=== PATIENT | female | born 1955 | race Hispanic/Latino ===

== ENCOUNTER 2017-03-04 07:17 | Emergency (ER) | payer OTHER ==
[2017-03-04 07:26] VITALS: BMI 35.9
[2017-03-04 07:27] VITALS: PULSE 74; RESP 17; TEMP 97.8; O2SAT 98
--- NOTE | 2017-03-04 08:02 | ED PDOC ---
HPI: Head Injury Time Seen by Provider: 03/04/17 07:35 Chief Complaint (Nursing): Trauma Chief Complaint (Provider): Head Injury History Per: Patient History/Exam Limitations: no limitations Injury Occurred (Timing): Hours Ago: (x1) Patient States: Fell Striking Head Loss Of Consciousness: No Additional Complaint(s): Rani Mtz is a 62 year old female with a history of diabetes and cardiac problems that presents to the ED after she reports she was sitting on a bench in the [place] and "dozed off," causing her to strike the upper left part of her forehead onto the ground one hour prior to arrival. Patient reports slight nausea, which she attributes to feeling anxious, but otherwise has no complaints and denies LOC. Past Medical History Reviewed: Historical Data, Nursing Documentation, Vital Signs Vital Signs: Last Vital Signs Temp 97.8 F 03/04/17 07:26 Pulse 74 03/04/17 07:26 Resp 17 03/04/17 07:26 BP 158/73 H 03/04/17 07:26 Pulse Ox 98 03/04/17 07:26 - Medical History PMH: Asthma, COPD, Diabetes, HTN, Hypercholesterolemia Other PMH: hx of heart attack in 2013 - Surgical History Other surgeries: Open heart surgery - Family History Family History: States: Unknown Family Hx - Home Medications Home Medications: Ambulatory Orders Medication Instructions Recorded Aspirin [Aspirin Chewable] 81 mg PO DAILY 02/26/17 Atorvastatin [Lipitor] 20 mg PO DIN tab 02/26/17 Clopidogrel [Plavix] 75 mg PO DAILY tab 02/26/17 Linezolid [Zyvox] 600 mg PO Q12 #14 tab 02/26/17 Lisinopril [Zestril] 5 mg PO DAILY tab 02/26/17 Metoprolol Tartrate [Lopressor] 25 mg PO BID tab 02/26/17 - Allergies Allergies/Adverse Reactions: Allergies Allergy/AdvReac Type Severity Reaction Status Date / Time No Known Allergies Allergy Verified 03/04/17 07:43 Review of Systems Constitutional: Positive for: Other (head injury, denies LOC) Gastrointestinal: Positive for: Nausea (mild) Physical Exam - Reviewed Nursing Documentation Reviewed: Yes Vital Signs Reviewed: Yes - Physical Exam Appears: Positive for: Non-toxic, No Acute Distress Head Exam: Positive for: NORMOCEPHALIC. Negative for: ATRAUMATIC (4x3 cm hematoma on left frontal scalp. Patient reports that injury occurred one hour [place] but hematoma does not appear as though it is new.) Skin: Positive for: Normal Color, Warm Eye Exam: Positive for: Normal appearance, EOMI, PERRL Neck: Positive for: Normal, Painless ROM Cardiovascular/Chest: Positive for: Regular Rate, Rhythm. Negative for: Murmur Respiratory: Positive for: Normal Breath Sounds. Negative for: Wheezing Extremity: Positive for: Normal ROM, Other (5/5 strength in all extremities). Negative for: Tenderness Neurologic/Psych: Positive for: Alert, linoleum floor layer II-XII, Oriented. Negative for: Motor/Sensory Deficits, Aphasia, Facial Droop - Laboratory Results Result Diagrams: 03/04/17 08:02 03/04/17 08:02 - ECG O2 Sat by Pulse Oximetry: 98 (RA) Pulse Ox Interpretation: Normal Medical Decision Making Medical Decision Making: Impression: Head Injury s/p fall Plan: * CT Head w/o contrast * EKG * BMP * CBC * PTT * PT * Troponin 1 * Reevaluation 8:00 Patient's EKG shows NSR normal axis rate of 68, no acute changes. 8:30 CT Head w/o contrast FINDINGS: HEMORRHAGE: No intracranial hemorrhage. BRAIN: No mass effect or edema. No atrophy or chronic microvascular ischemic changes. VENTRICLES: Unremarkable. No hydrocephalus. CALVARIUM: Left frontal soft tissue hematoma. . PARANASAL SINUSES: Unremarkable as visualized. No significant inflammatory changes. MASTOID AIR CELLS: Unremarkable as visualized. No inflammatory changes. OTHER FINDINGS: None. IMPRESSION: Left frontal soft tissue hematoma. No intracranial hemorrhage. Scribe Attestation: Documented by Jacquelin Small, acting as a scribe for Carmen Rios MD. Provider Scribe Attestation: All medical record entries made by the Scribe were at my direction and personally dictated by me. I have reviewed the chart and agree that the record accurately reflects my personal performance of the history, physical exam, medical decision making, and the department course for this patient. I have also personally directed, reviewed, and agree with the discharge instructions and disposition. Disposition - Clinical Impression Clinical Impression: Scalp hematoma - Patient ED Disposition Is Patient to be Admitted: No Doctor Will See Patient In The: Office Counseled Patient/Family Regarding: Diagnosis, Need For Followup - Disposition Referrals: [facility] [Outside] Disposition: Routine/Home Disposition Time: 10:15 Condition: STABLE Instructions: Scalp Contusion in Adults (ED), Head Injury (ED) Forms: [facility] (Surinamese) - POA Present On Arrival: Falls Or Trauma
[2017-03-04 08:45] LABS: BASO % 0.7 % (0.0-2.0); EOS # 0.1 K/uL (0.0-0.7); EOS % 2.5 % (0.0-4.0); HEMATOCRIT 31.4 % (34.0-47.0); LYMPH % 20.7 % (20.0-40.0); MEAN CELL VOLUME 84.9 fl (81.0-99.0); MEAN CORPUSCULAR HEMOGLOBIN 27.8 pg (27.0-31.0); MEAN CORPUSCULAR HGB CONC 32.7 g/dL (33.0-37.0); MEAN PLATELET VOLUME 8.7 fl (7.2-11.7); MONO # 0.3 K/uL (0.0-0.8); MONO % 5.6 % (0.0-10.0); NEUT # 3.3 K/uL (1.8-7.0); NEUT % 70.5 % (50.0-75.0); NRBC % 0.1 % (0.0-0.0); WHITE BLOOD COUNT 4.6 K/uL (4.8-10.8)
[2017-03-04 08:49] LABS: BLOOD UREA NITROGEN 26 mg/dl (7-17); CALCIUM 9.8 mg/dL (8.4-10.2); CARBON DIOXIDE 24 mmol/L (22-30); CHLORIDE 106 mmol/L (98-107); GFR AFRICAN-AMERICAN > 60; GLUCOSE,RANDOM 175 mg/dL (65-105); POTASSIUM 4.8 MMOL/L (3.6-5.0); SODIUM 141 mmol/l (132-148)
[2017-03-04 08:58] LABS: PARTIAL THROMBOPLASTIN TIME 32.4 Seconds (25.6-37.1)
--- NOTE | 2017-03-04 09:11 | CT ---
PROCEDURE: CT HEAD WITHOUT CONTRAST. HISTORY: fall with head injury COMPARISON: None available. TECHNIQUE: Axial computed tomography images were obtained through the head/brain without intravenous contrast. Radiation dose: Total exam DLP = 885 mGy-cm. This CT exam was performed using one or more of the following dose reduction techniques: Automated exposure control, adjustment of the mA and/or kV according to patient size, and/or use of iterative reconstruction technique. FINDINGS: HEMORRHAGE: No intracranial hemorrhage. BRAIN: No mass effect or edema. No atrophy or chronic microvascular ischemic changes. VENTRICLES: Unremarkable. No hydrocephalus. CALVARIUM: Left frontal soft tissue hematoma. . PARANASAL SINUSES: Unremarkable as visualized. No significant inflammatory changes. MASTOID AIR CELLS: Unremarkable as visualized. No inflammatory changes. OTHER FINDINGS: None. IMPRESSION: Left frontal soft tissue hematoma. No intracranial hemorrhage.
--- NOTE | 2017-03-04 09:39 | CARD ---
APPROVED REPORT EKG Measurement Heart [id number] MA [id number] [id number] <Conclusion> Normal sinus rhythm Moderate voltage criteria for LVH, may be normal variant Inferior infarct, age undetermined Abnormal ECG
[2017-03-04 11:32] VITALS: BP 143/84
== END 2017-03-04 11:31 | disposition home or self-care (01) ==
LOC: H.ER 07:17
DX: S00.03XA Contusion of scalp, initial encounter (principal); W22.8XXA Striking against or struck by other objects, initial encounter; Y92.89 Other specified places as the place of occurrence of the external cause; E11.9 Type 2 diabetes mellitus without complications; E78.00 Pure hypercholesterolemia, unspecified; I10 Essential (primary) hypertension; Z79.82 Long term (current) use of aspirin; I25.2 Old myocardial infarction; J44.9 Chronic obstructive pulmonary disease, unspecified

== ENCOUNTER 2017-03-07 11:24 | Inpatient (IN) | payer OTHER ==
[2017-03-07 11:24] VITALS: BMI 35.9
[2017-03-07 12:32] LABS: BASO % 0.8 % (0.0-2.0); EOS # 0.1 K/uL (0.0-0.7); EOS % 2.1 % (0.0-4.0); HEMATOCRIT 31.8 % (34.0-47.0); LYMPH % 18.7 % (20.0-40.0); MEAN CELL VOLUME 84.5 fl (81.0-99.0); MEAN CORPUSCULAR HEMOGLOBIN 27.3 pg (27.0-31.0); MEAN CORPUSCULAR HGB CONC 32.3 g/dL (33.0-37.0); MONO # 0.3 K/uL (0.0-0.8); MONO % 5.3 % (0.0-10.0); NEUT # 4.1 K/uL (1.8-7.0); NEUT % 73.1 % (50.0-75.0); NRBC % 0.1 % (0.0-0.0); RED CELL DISTRIBUTION WIDTH 15.4 % (11.5-14.5); WHITE BLOOD COUNT 5.6 K/uL (4.8-10.8)
[2017-03-07 12:41] LABS: ALB/GLOB RATIO 1.4 (1.0-2.1); ALKALINE PHOSPHATASE 104 U/L (38-126); ALT/SGPT 41 U/L (9-52); AST/SGOT 21 U/L (14-36); BILIRUBIN,TOTAL 0.4 mg/dl (0.2-1.3); BLOOD UREA NITROGEN 30 mg/dl (7-17); CALCIUM 9.5 mg/dL (8.4-10.2); CARBON DIOXIDE 24 mmol/L (22-30); CHLORIDE 107 mmol/L (98-107); GFR AFRICAN-AMERICAN > 60; GLUCOSE,RANDOM 166 mg/dL (65-105); POTASSIUM 4.9 MMOL/L (3.6-5.0); SODIUM 142 mmol/l (132-148); TOTAL PROTEIN 6.6 G/DL (6.3-8.2)
--- NOTE | 2017-03-07 12:54 | ED PDOC ---
HPI: General Adult Time Seen by Provider: 03/07/17 11:27 Chief Complaint (Nursing): Trauma History Per: Patient Additional Complaint(s): Pt. states on Sunday she was sleeping on a bench when she was woke abruptly and she stood up and felt dizzy. She then fell down and landed on the L side of her head. Reports no LOC. She was seen here and had CT done which was negative and she was subsequently discharged. This morning she bent forward to pick pulling machine tender an object and when she stood up she felt dizzy which caused her to fall and injure the same side of her face once again. Denies LOC, N/V, neck pain, other injury. Past Medical History Reviewed: Historical Data, Nursing Documentation, Vital Signs Vital Signs: Last Vital Signs Temp 98.3 F 03/07/17 11:32 Pulse 64 03/07/17 15:35 Resp 16 03/07/17 14:26 BP 149/66 03/07/17 14:26 Pulse Ox 98 03/07/17 15:35 - Medical History PMH: Asthma, COPD, Diabetes, HTN, Hypercholesterolemia - Family History Family History: States: No Known Family Hx - Home Medications Home Medications: Ambulatory Orders Medication Instructions Recorded Albuterol HFA [Ventolin HFA 90 2 puff IH Q4H PRN 03/07/17 mcg/actuation (8 g)] Clindamycin [Cleocin] 300 mg PO TID 03/07/17 Collagenase [Santyl] 1 appl TOP DAILY 03/07/17 Furosemide [Lasix] 40 mg PO DAILY 03/07/17 Ibuprofen [Motrin Tab] 600 mg PO Q6H PRN 03/07/17 Insulin Detemir [Levemir] 12 unit SC HS 03/07/17 Isosorbide Mononitrate [Imdur] 60 mg PO DAILY 03/07/17 Lisinopril [Zestril] 10 mg PO DAILY 03/07/17 Mupirocin 2% Ointment [Bactroban 1 appl TP DAILY 03/07/17 Ointment] metFORMIN [glucOPHAGE] 500 mg PO BID 03/07/17 - Allergies Allergies/Adverse Reactions: Allergies Allergy/AdvReac Type Severity Reaction Status Date / Time No Known Allergies Allergy Verified 03/07/17 11:41 Review of Systems ROS Statement: Except As Marked, All Systems Reviewed And Found Negative Neurological: Positive for: Headache Physical Exam - Reviewed Nursing Documentation Reviewed: Yes Vital Signs Reviewed: Yes - Physical Exam Appears: Positive for: Well, Non-toxic, No Acute Distress Head Exam: Negative for: ATRAUMATIC (large swelling and ecchymotic area on the L side of forehead extending to L side of face with superficial abrasion noted to L side of forehead), NORMAL INSPECTION, NORMOCEPHALIC Skin: Positive for: Normal Color, Warm, DRY Eye Exam: Positive for: EOMI (including upward gaze), PERRL, Periorbital swelling (L upper eyelid). Negative for: Periorbital tenderness, Conjunctival injection (b/l) ENT: Positive for: Normal ENT Inspection, TM Is/Are (no hemotympanum b/l) Neck: Positive for: Normal, Painless ROM Cardiovascular/Chest: Positive for: Regular Rate, Rhythm, Chest Non Tender Respiratory: Positive for: CNT, Normal Breath Sounds Gastrointestinal/Abdominal: Positive for: Normal Exam, Soft. Negative for: Tenderness Back: Positive for: Normal Inspection Extremity: Positive for: Normal ROM Neurologic/Psych: Positive for: Alert, Oriented - Laboratory Results Result Diagrams: 03/07/17 12:20 03/07/17 12:20 - ECG ECG: Positive for: Interpreted By Me ECG Rhythm: Positive for: Sinus Rhythm. Negative for: ST/T Changes Rate: 64 O2 Sat by Pulse Oximetry: 98 - Radiology X-Ray: Read By Radiologist (CXR) X-Ray Interpretation: Infiltrates (R lower lobe infiltrate or atelectasis) - Progress ED Course And Treament: CT head w/o contrast: no ICH CT maxillofacial w/o contrast: no fx Case d/w Dr. Jorgensen (hospitalist; pt's PMD is Dr. Sandy) and arrangements made for admission. Blood culture x 2, levaquin 500mg IV ordered. Disposition - Clinical Impression Clinical Impression: Head injury, Pneumonia - Patient ED Disposition Is Patient to be Admitted: Yes - Disposition Disposition Time: 15:07 Condition: STABLE
--- NOTE | 2017-03-07 14:37 | CT ---
PROCEDURE: CT scan brain 03/07/2017 HISTORY: trauma COMPARISON: Comparison made with prior CT scan of the brain dated 03/04/2017. TECHNIQUE: Axial computed tomography images were obtained through the head/brain without intravenous contrast. Radiation dose: Total exam DLP = mGy-cm. This CT exam was performed using one or more of the following dose reduction techniques: Automated exposure control, adjustment of the mA and/or kV according to patient size, and/or use of iterative reconstruction technique. FINDINGS: HEMORRHAGE: No acute parenchymal, subarachnoid or extra-axial hemorrhage. BRAIN: No evidence of large acute infarct. . No obvious parenchymal nor extra-axial masses or collections. Kidney take a lymph node kidney take a look in wondering UPEP dictate the case to emanate time to dictate the case? Mild generalized volume VENTRICLES: No evidence of obstructive hydrocephalus. CALVARIUM: . No acute calvarial fractures. Re- demonstrated is a large left frontotemporal and to a lesser degree left anterior parietal scalp contusion which extends medially over the mid frontal region as well inferiorly over the periorbital and premaxillary soft tissues. Swelling extends over the left zygomatic arch PARANASAL SINUSES: Unremarkable as visualized. No significant inflammatory changes. MASTOID AIR CELLS: Unremarkable as visualized. No inflammatory changes. OTHER FINDINGS: None. IMPRESSION: No acute intracranial hemorrhage. Large left frontal temporal and posterior parietal scalp contusion. . Swelling extends over the left periorbital and left premaxillary soft tissues as well as over the left zygomatic arch.
--- NOTE | 2017-03-07 14:53 | RAD ---
HISTORY: Trauma COMPARISON: No prior. FINDINGS: LUNGS: Right lower lobe infiltrate/ atelectasis. PLEURA: No significant pleural effusion identified, no pneumothorax apparent. CARDIOVASCULAR: Cardiomegaly. No evidence of acute, significant cardiovascular disease. OSSEOUS STRUCTURES: No significant abnormalities. VISUALIZED UPPER ABDOMEN: Normal. OTHER FINDINGS: None. IMPRESSION: Right lower lobe infiltrate/atelectasis.
--- NOTE | 2017-03-07 15:02 | CT ---
PROCEDURE: CT scan maxillofacial skeleton dated 03/07/2017. HISTORY: Trauma COMPARISON: Correlation made with concurrent CT scan brain TECHNIQUE: Contiguous helical/transaxial CT images of the maxillofacial bones were obtained. Coronal and sagittal reformats were generated. Radiation dose: 731.58 Total exam DLP = 731.58 mGy-cm. This CT exam was performed using one or more of the following dose reduction techniques: Automated exposure control, adjustment of the mA and/or kV according to patient size, and/or use of iterative reconstruction technique. FINDINGS: Re- demonstrated is a large left frontotemporal and posterior parietal scalp contusion with of soft tissue swelling that extends inferiorly into the periorbital soft tissues as well as the soft tissues overlying the zygomatic arch. The bony orbits intact. Globes intact and lenses appropriately located. There are no retrobulbar hemorrhages or collections. Optic nerves and extraocular musculature unremarkable. Visualized paranasal sinuses are well-developed and currently well-aerated. There are no fluid levels seen to suggest acute hemorrhage or sinusitis. Dense vascular calcifications of the carotid bifurcations. In addition, there are calcifications of the distal vertebral arteries and both carotid siphons. Note again made of incomplete fusion of the posterior arch C1. IMPRESSION: No evidence of acute maxillofacial skeletal fracture. The osseous structures including the nasal bones, anterior nasal spine and mandible Large left frontotemporal and posterior parietal scalp contusion with of soft tissue swelling that extends inferiorly into the periorbital soft tissues as well as the soft tissues overlying the zygomatic arch. Incomplete fusion posterior arch C1 unchanged
[2017-03-07] MEDS ORDERED: Sodium Chloride 0.9% 1,000 ML IV STA (15:34)
[2017-03-07] MEDS ORDERED: Albuterol HFA 90 mcg/actuation (8 g) IH PRN (15:54)
--- NOTE | 2017-03-07 15:54 | CP.PCM.HP ---
History of Present Illness - History of Present Illness History of Present Illness: PMD: Dr Camargo Chief Complaint : Fall HPI: 62 y/o Homeless lady with extensive medical history that includes CAD s/p CABG, HTN, DM, Chronic LLE Ulcer, Asthma, was brought in after a fall. The patient states that yesterday , because she lives in a retirement , she was sleeping on a bench and she accidentally fell and sustained head injury . She was seen at our ED , CT of head was negative and she was discharged home. This morning , the same thing happened , she hasnt eaten her breakfast , got up from the bench and felt slightly dizzy, fell and again injured the same side of the head as yesterday. Denies any loss of consciousness, no headache, no SOB, no CP. She denies feeling weak on one side of the body. denies fever. no visual change At present she feels fine except for a sl pain on the area of trauma. Noted left leg ulcer - this is chronic , she was just d/c from [facility] after a tx with IV abx. Wound c/s was + for MRSA and E coli. Present on Admission - Present on Admission Any Indicators Present on Admission: Yes - Notes: Notes:: non healing wound left leg Review of Systems - Review of Systems All systems: reviewed and no additional remarkable complaints except - Constitutional Constitutional: absent: Fever, Headache, Weakness - EENT Eyes: absent: Change in Vision, Diplopia Ears: absent: Decreased Hearing, Ear Discharge Nose/Mouth/Throat: absent: Nasal Congestion, Nasal Discharge, Dysphagia, Sore Throat - Cardiovascular Cardiovascular: Pedal Edema. absent: Chest Pain, Claudication, Orthopnea, Palpitations - Respiratory Respiratory: absent: Cough, Dyspnea, Hemoptysis, Dyspnea on Exertion, Wheezing, Chest Congestion - Gastrointestinal Gastrointestinal: absent: Abdominal Pain, Nausea, Vomiting - Genitourinary Genitourinary: absent: Change in Urinary Stream, Difficulty Urinating, Dysuria - Musculoskeletal Musculoskeletal: absent: Arthralgias - Integumentary Integumentary: Skin Ulcer, Swelling. absent: Bleeding Lesions - Neurological Neurological: absent: Behavioral Changes, Confusion, Disequilibrium, Dizziness, Focal Weakness, Headaches, Memory Loss, Paresthesias, Syncope - Psychiatric Psychiatric: absent: Anxiety, Depression, Suicidal Ideation, Visual Hallucinations - Endocrine Endocrine: absent: Polydipsia, Polyphagia, Polyuria - Hematologic/Lymphatic Hematologic: absent: Easy Bleeding, Easy Bruising Past Patient History - Infectious Disease Hx of Infectious Diseases: None - Tetanus Immunizations Tetanus Immunization: Unknown - Past Medical History & Family History Past Medical History?: Yes Pertinent Family History: Father : of COPD complications Mother : CAD - Past Social History Smoking Status: Former Smoker Chewing Tobacco Use: No Cigar Use: No Alcohol: None Drugs: Denies Home Situation {Lives}: Homeless Domestic Violence: Negative - CARDIAC Hx Cardiac Disorders: Yes Hx Hypercholesterolemia: Yes Hx Hypertension: Yes Hx Peripheral Edema: Yes Hx Peripheral Vascular Disease: Yes Other/Comment: CAD s/p CABG - PULMONARY Hx Asthma: Yes Hx Chronic Obstructive Pulmonary Disease (COPD): Yes - NEUROLOGICAL Hx Neurological Disorder: No - HEENT Hx HEENT Problems: No - RENAL Hx Chronic Kidney Disease: No - ENDOCRINE/METABOLIC Hx Endocrine Disorders: Yes Hx Diabetes Mellitus Type 2: Yes - HEMATOLOGICAL/ONCOLOGICAL Hx Blood Disorders: No - INTEGUMENTARY Hx Dermatological Problems: Yes Hx Cellulitis: Yes Other/Comment: nonhealing wound LLE - MUSCULOSKELETAL/RHEUMATOLOGICAL Hx Musculoskeletal Disorders: No Hx Falls: No - GASTROINTESTINAL Hx Gastrointestinal Disorders: No - GENITOURINARY/GYNECOLOGICAL Hx Genitourinary Disorders: No - PSYCHIATRIC Hx Psychophysiologic Disorder: No Hx Substance Use: No - SURGICAL HISTORY Hx Coronary Artery Bypass Graft: Yes Hx Tonsillectomy: Yes Other/Comment: by-pass both legs - ANESTHESIA Hx Anesthesia: Yes Hx Anesthesia Reactions: No Hx Malignant Hyperthermia: No Meds Allergies/Adverse Reactions: Allergies Allergy/AdvReac Type Severity Reaction Status Date / Time No Known Allergies Allergy Verified 03/07/17 11:41 Physical Exam - Constitutional Appears: Non-toxic, No Acute Distress - Head Exam Additional comments: Left frontal, temporal hematoma, abrasion periorbital hematoma , left - Eye Exam Eye Exam: EOMI, Periorbital tenderness Pupil Exam: NORMAL ACCOMODATION - ENT Exam ENT Exam: Mucous Membranes Moist, Normal External Ear Exam - Neck Exam Neck exam: Positive for: Full Rom. Negative for: Meningismus - Respiratory Exam Respiratory Exam: NORMAL BREATHING PATTERN. absent: Rales, Wheezes, Respiratory Distress - Cardiovascular Exam Cardiovascular Exam: REGULAR RHYTHM, +S1, +S2 - GI/Abdominal Exam GI & Abdominal Exam: Hernia (umbilical), Normal Bowel Sounds, Soft. absent: Tenderness - Extremities Exam Extremities exam: Positive for: calf tenderness, normal capillary refill, pedal edema, pedal pulses present Additional comments: left Leg ulcer - Back Exam Back exam: FULL ROM. absent: CVA tenderness (L), CVA tenderness (R), paraspinal tenderness, vertebral tenderness - Neurological Exam Neurological exam: Alert, CN II-XII Intact, Oriented x3, Reflexes Normal - Psychiatric Exam Psychiatric exam: Normal Affect, Normal Mood - Skin Skin Exam: Abrasion, Dry, Normal Color, Warm Results - Vital Signs Recent Vital Signs: Last Vital Signs Temp 98.3 F 03/07/17 11:32 Pulse 64 03/07/17 15:35 Resp 16 03/07/17 14:26 BP 149/66 03/07/17 14:26 Pulse Ox 98 03/07/17 15:35 - Labs Result Diagrams: 03/07/17 12:20 03/07/17 12:20 Labs: Laboratory Results - last 24 hr 03/07/17 03/07/17 12:20 12:20 WBC 5.6 RBC 3.77 L Hgb 10.3 L Hct 31.8 L MCV 84.5 MCH 27.3 MCHC 32.3 L RDW 15.4 H Plt Count 209 MPV 8.0 Neut % (Auto) 73.1 Lymph % (Auto) 18.7 L [place] % (Auto) 5.3 Eos % (Auto) 2.1 Baso % (Auto) 0.8 Neut # 4.1 Lymph # 1.0 [place] # 0.3 Eos # 0.1 Baso # 0.0 Sodium 142 Potassium 4.9 Chloride 107 Carbon Dioxide 24 Anion Gap 16 BUN 30 H Creatinine 1.1 Est GFR ( Amer) > 60 Est GFR (Non-Af Amer) 51 Random Glucose 166 H Calcium 9.5 Total Bilirubin 0.4 AST 21 ALT 41 Alkaline Phosphatase 104 Troponin I < 0.0120 Total Protein 6.6 Albumin 3.9 Globulin 2.7 Albumin/Globulin Ratio 1.4 - EKG Data EKG Interpreted by: Myself EKG shows normal: Sinus rhythm Rate: Normal - EKG Data When Compared to Previous EKG: No Significant Change Assessment & Plan (1) Head injury Status: Acute (2) Scalp hematoma Status: Acute (3) Fall Status: Acute (4) CAD (coronary artery disease) Status: Chronic (5) HTN (hypertension) Status: Chronic (6) DM type 2 (diabetes mellitus, type 2) Status: Chronic (7) Asthma, mild intermittent Status: Chronic (8) Chronic venous insufficiency Status: Chronic (9) Chronic ulcer of left leg Status: Chronic (10) DVT prophylaxis Status: Acute - Assessment and Plan (Free Text) Assessment: 62 y/o Homeless lady, hx of CAD s/p CABG, HTN, DM, Asthma , Chronic LLE Ulcer ( MRSA , E Coli) was brought in after a fall. Pt was brought in yesterday bec of the same problem - she fell off a bench while napping , sustained head trauma and scalp contusion. She had a CT scan w/c was negative for bleed nor fracture and was discharged home. Today she again was sitted on a bench , bent down to pick something on the floor when she felt slight dizzy and fell on her left and sustained trauma on the same side of her head where she had the trauma, the day before. She denies LOC, headache, no N/V, no CP, no SOB. She states she did not eat her breakfast before the event. (1) Head injury Status: Acute sec to [facility], denies LOC, [place] CT of head and Maxillofacial : No intracranial bleed nor fracture, No acute intracranial hemorrhage. Large left frontal temporal and posterior parietal scalp contusion. . Swelling extends over the left periorbital and left premaxillary soft tissues as well as over the left zygomatic arch. PT consult No focal neuro deficit (2) Scalp hematoma Status: Acute as above (3) Fall Status: Acute as above no signs and sxs to indicate this was a syncopal episode no focal neuro deficit on exam PT consult (4) CAD (coronary artery disease) Status: Chronic Hx of CABG denies CP Trop x 3 no EKG change cont Imdur, ASA (5) HTN (hypertension) Status: Chronic (6) DM type 2 (diabetes mellitus, type 2) Status: Chronic accucheck achs cont Levemir cont Metformin (7) Asthma, mild intermittent Status: Chronic Albuterol inhaler prn (8) Chronic venous insufficiency Status: Chronic stasis skin changes (9) Chronic ulcer of left leg Status: Chronic recent d/c from [facility] for Cellulitis- on PO Clinda Wound c/s; MRSA and E coli will start IV vanco and Levaquin while in the hospital Podiatry consult Pt is afebrile, no Leukocytosis, some tenderness and erythema around the area of the wound Wound RN Doppler US of LLE 10. CXR : Atelectasis vs Infiltrate - no fever, no leukocytosis, pt has no dyspnea, occ cough, lung exam: no rales - Favor Atelectasis (11) DVT prophylaxis Status: Acute Lovenox
[2017-03-07] MEDS ORDERED: levoFLOXacin 500 mg in D5W 500 MG/100 ML BAG IVPB ONE (16:08)
[2017-03-07] MEDS: levoFLOXacin 500 mg in D5W 500 MG/100 ML BAG IVPB STA ×2 (16:15→16:16)
[2017-03-07] MEDS: Sodium Chloride 0.9% 1,000 ML IV SCH (17:20)
[2017-03-07] MEDS: Lactobacillus Acidophilus 500 MU Cap PO SCH (18:00)
--- NOTE | 2017-03-07 21:18 | CP.PCM.CON ---
History of Present Illness - History of Present Illness History of Present Illness: Podiatry Consult Note - Dr. Mayorga 62 year old female patient with PMHx CAD s/p CABG x4, OR in 2013, DM, COPD, Asthma, HTN, and HLD seen at bedside for ongoing left leg ulceration and cellulitis. Patient states she has had the wound on the front of her left cote for over 1 month from a prior fall injury. She was previously seen by Podiatry Service in [facility] earlier this month for the same issue. Pt denies recent pain to the area but redness has increased since her hospital discharge and swelling is mildly increased. Patient is homeless and had difficulty filling prior antibiotic prescription. Patient states the wound had a mild amount of drainage. Patient seen at bedside sleeping comfortably, AAOx3 and NAD. Patient denies any acute events overnight events. Patient denies N/V/F /D/C/SOB/calf pain. No other pedal complaints at this time. Past Patient History - Infectious Disease Hx of Infectious Diseases: None - Tetanus Immunizations Tetanus Immunization: Unknown - Past Medical History & Family History Past Medical History?: Yes - Past Social History Smoking Status: Never Smoked - CARDIAC Hx Cardiac Disorders: Yes Hx Hypercholesterolemia: Yes Hx Hypertension: Yes Hx Peripheral Edema: Yes Hx Peripheral Vascular Disease: Yes Other/Comment: CAD s/p CABG - PULMONARY Hx Asthma: Yes Hx Chronic Obstructive Pulmonary Disease (COPD): Yes - NEUROLOGICAL Hx Neurological Disorder: No - HEENT Hx HEENT Problems: No - RENAL Hx Chronic Kidney Disease: No - ENDOCRINE/METABOLIC Hx Endocrine Disorders: Yes Hx Diabetes Mellitus Type 2: Yes - HEMATOLOGICAL/ONCOLOGICAL Hx Blood Disorders: No - INTEGUMENTARY Hx Dermatological Problems: Yes Hx Cellulitis: Yes Other/Comment: nonhealing wound LLE - MUSCULOSKELETAL/RHEUMATOLOGICAL Hx Musculoskeletal Disorders: No Hx Falls: Yes - GASTROINTESTINAL Hx Gastrointestinal Disorders: No - GENITOURINARY/GYNECOLOGICAL Hx Genitourinary Disorders: No - PSYCHIATRIC Hx Psychophysiologic Disorder: No Hx Substance Use: No - SURGICAL HISTORY Hx Coronary Artery Bypass Graft: Yes Hx Tonsillectomy: Yes Other/Comment: by-pass both legs - ANESTHESIA Hx Anesthesia: Yes Hx Anesthesia Reactions: No Hx Malignant Hyperthermia: No Meds Allergies/Adverse Reactions: Allergies Allergy/AdvReac Type Severity Reaction Status Date / Time No Known Allergies Allergy Verified 03/07/17 11:41 - Medications Medications: Current Medications Albuterol (Ventolin Hfa 90 Mcg/Actuation (8 G)) 2 puff IH Q4H PRN PRN Reason: Shortness of Breath Aspirin (Aspirin Chewable) 81 mg PO DAILY [facility] Collagenase (Santyl) 1 applic TOP DAILY [facility] Enoxaparin Sodium (Lovenox) 40 mg SC DAILY [facility] PRN Reason: Protocol Furosemide (Lasix) 40 mg PO DAILY [facility] Sodium Chloride (Sodium Chloride 0.9%) 1,000 mls @ 70 mls/hr IV .[id number] [facility] Stop: 03/08/17 16:35 Last Admin: 03/07/17 17:20 Dose: 70 mls/hr Vancomycin HCl 1 gm/ Sodium (Chloride) 250 mls @ 166.667 mls/hr IVPB Q12 [facility] Levofloxacin/Dextrose (Levaquin 500mg) 500 mg in 100 mls @ 100 mls/hr IVPB DAILY [facility] Ibuprofen (Motrin Tab) 600 mg PO Q6H PRN PRN Reason: Pain, moderate (4-7) Insulin Detemir (Levemir) 12 units SC HS [facility] Insulin Human Lispro (Humalog) 0 units SC ACHS [facility] PRN Reason: Protocol Isosorbide Mononitrate (Imdur) 60 mg PO DAILY [facility] Lactobacillus Acidophilus (Bacid Acidophilus) 1 cap PO BID [facility] Last Admin: 03/07/17 18:00 Dose: 1 cap Lisinopril (Zestril) 10 mg PO DAILY [facility] Metformin HCl (Glucophage) 500 mg PO BID [facility] Last Admin: 03/07/17 18:00 Dose: 500 mg Mupirocin (Bactroban Ointment) 1 applic TOP DAILY [facility] Physical Exam - Constitutional Appears: Well, Non-toxic, No Acute Distress - Head Exam Head Exam: absent: ATRAUMATIC Additional comments: Left submandibular ecchymosis. - Eye Exam Eye Exam: EOMI, Periorbital swelling, Periorbital tenderness - Extremities Exam Additional comments: LLE focused physical exam. Vasc: DP and PT pulses weakly palpable 1/4. TG WNL. Edema noted to RLE Neuro: Gross sensation diminished Derm: Superficial ulceration noted to anterior mid leg measuring 2.8 x 3.5 cm, with a fibro-grannlar wound base. Mild serosanguinous drainage noted. Moderate periwound erythema, edema, and callor, erythema intensity moderate. No tunneling , undermining, no fluctuance noted. Mild malodor noted. Ortho: No tenderness to palpation left anterior leg wound - Neurological Exam Neurological exam: Alert, Oriented x3 - Psychiatric Exam Psychiatric exam: Normal Affect, Normal Mood Results - Vital Signs Recent Vital Signs: Last Vital Signs Temp 97.7 F 03/07/17 19:29 Pulse 73 03/07/17 19:29 Resp 18 03/07/17 19:44 BP 144/67 03/07/17 19:29 Pulse Ox 100 03/07/17 19:44 - Labs Result Diagrams: 03/08/17 05:50 03/08/17 05:50 Labs: Laboratory Results - last 24 hr 03/07/17 03/07/17 03/07/17 12:20 12:20 17:14 WBC 5.6 RBC 3.77 L Hgb 10.3 L Hct 31.8 L MCV 84.5 MCH 27.3 MCHC 32.3 L RDW 15.4 H Plt Count 209 MPV 8.0 Neut % (Auto) 73.1 Lymph % (Auto) 18.7 L Ida % (Auto) 5.3 Eos % (Auto) 2.1 Baso % (Auto) 0.8 Neut # 4.1 Lymph # 1.0 Ida # 0.3 Eos # 0.1 Baso # 0.0 Sodium 142 Potassium 4.9 Chloride 107 Carbon Dioxide 24 Anion Gap 16 BUN 30 H Creatinine 1.1 Est GFR ( Amer) > 60 Est GFR (Non-Af Amer) 51 Random Glucose 166 H Calcium 9.5 Total Bilirubin 0.4 AST 21 ALT 41 Alkaline Phosphatase 104 Troponin I < 0.0120 < 0.0120 Total Protein 6.6 Albumin 3.9 Globulin 2.7 Albumin/Globulin Ratio 1.4 Assessment & Plan - Assessment and Plan (Free Text) Assessment: 62 year old female with left anterior left leg superficial ulceration and cellulitis; Jean Baptiste Grade 1. Plan: Patient seen and evaluated at bedside. Discussed finding in detail with attending Dr. Mayorga, who endorsed the following plan Chart, vitals, labs reviewed; pt is afebrile; WBC within normal limits at 5.4K. Prior Left tibia/fibular XR reviewed = unremarkable, negative for emphasyma. Prior Left leg CT reviewed = unremarkable, negative for Osteomyelitis. Wound culture taken-pending. Left anterior leg wound cleansed with normal sterile saline, and wet to dry dressing applied. Wound dressed with 4x4 gauze, ABD, and kerlix Continue abx per medicine = Vancomycin Podiatry will continue to follow while in house. Thank you for allowing podiatry service to participate in the care of this patient. - Date & Time Date: 03/08/17 Time: 07:43
[2017-03-07] MEDS ORDERED: INSULIN DETEMIR 12 UNIT SC SCH (22:00)
[2017-03-07] MEDS ORDERED: Insulin Detemir 100 Units/ml Inj SC SCH (22:00)
[2017-03-07] MEDS: Insulin Lispro (humaLOG) 100 Units/ml Inj SC SCH (22:14)
[2017-03-08 06:07] LABS: HEMATOCRIT 31.3 % (34.0-47.0); MEAN CELL VOLUME 85.9 fl (81.0-99.0); MEAN CORPUSCULAR HEMOGLOBIN 26.7 pg (27.0-31.0); MEAN CORPUSCULAR HGB CONC 31.1 g/dL (33.0-37.0); RED CELL DISTRIBUTION WIDTH 15.6 % (11.5-14.5); WHITE BLOOD COUNT 5.4 K/uL (4.8-10.8)
[2017-03-08 06:17] LABS: BLOOD UREA NITROGEN 24 mg/dl (7-17); CALCIUM 9.3 mg/dL (8.4-10.2); CARBON DIOXIDE 23 mmol/L (22-30); CHLORIDE 110 mmol/L (98-107); GFR AFRICAN-AMERICAN > 60; GLUCOSE,RANDOM 94 mg/dL (65-105); POTASSIUM 4.7 MMOL/L (3.6-5.0); SODIUM 141 mmol/l (132-148)
[2017-03-08] MEDS: Insulin Lispro (humaLOG) 100 Units/ml Inj SC SCH ×4 (06:41→22:30)
[2017-03-08] MEDS: Sodium Chloride 0.9% 1,000 ML IV SCH (07:30)
[2017-03-08] MEDS: Lactobacillus Acidophilus 500 MU Cap PO SCH ×2 (09:07→17:14)
[2017-03-08] MEDS: Enoxaparin 40 mg Syringe SC SCH (09:07)
[2017-03-08] MEDS: Santyl Collagenase OINTMENT TOP SCH (10:00)
--- NOTE | 2017-03-08 10:46 | CARD ---
APPROVED REPORT EKG Measurement Heart [id number] <Conclusion> Normal sinus rhythm Minimal voltage criteria for LVH, may be normal variant Possible Inferior infarct, age undetermined Abnormal ECG
--- NOTE | 2017-03-08 11:07 | RAD ---
PROCEDURE: Left Foot Radiographs. HISTORY: r/o soft tissue emphysema COMPARISON: None. FINDINGS: BONES: Bone alignment and mineralization are normal. There is no acute fracture or bone destruction. JOINTS: Normal. SOFT TISSUES: There is severe dorsal soft tissue swelling . There is lucency in the deep subcutaneous soft tissues. OTHER FINDINGS: None. IMPRESSION: Severe dorsal soft tissue swelling and suspect deep subcutaneous edema/ question emphysema. No radiographic evidence for osteomyelitis.
--- NOTE | 2017-03-08 11:10 | CP.PCM.PN ---
Subjective - Date & Time of Evaluation Date of Evaluation: 03/08/17 Time of Evaluation: 10:45 - Subjective Subjective: No fever denies CP no SOB no cough no abd pain Denies Headache, no dizziness no focal neuro deficit Objective - Vital Signs/Intake and Output Vital Signs (last 24 hours): Temp Pulse Resp BP Pulse Ox 98 F 65 18 133/84 94 L 03/08/17 08:00 03/08/17 09:05 03/08/17 08:00 03/08/17 09:05 03/08/17 08:00 Intake and Output: 03/08/17 03/08/17 06:59 18:59 Intake Total 1120 Balance 1120 - Medications Medications: Current Medications Albuterol (Ventolin Hfa 90 Mcg/Actuation (8 G)) 2 puff IH Q4H PRN PRN Reason: Shortness of Breath Aspirin (Aspirin Chewable) 81 mg PO DAILY [facility] Last Admin: 03/08/17 09:05 Dose: 81 mg Collagenase (Santyl) 1 applic TOP DAILY [facility] Enoxaparin Sodium (Lovenox) 40 mg SC DAILY [facility] PRN Reason: Protocol Last Admin: 03/08/17 09:07 Dose: 40 mg Furosemide (Lasix) 40 mg PO DAILY [facility] Sodium Chloride (Sodium Chloride 0.9%) 1,000 mls @ 70 mls/hr IV .[id number] [facility] Stop: 03/08/17 16:35 Last Admin: 03/07/17 17:20 Dose: 70 mls/hr Vancomycin HCl 1 gm/ Sodium (Chloride) 250 mls @ 166.667 mls/hr IVPB Q12 [facility] Last Admin: 03/07/17 22:07 Dose: 166.667 mls/hr Levofloxacin/Dextrose (Levaquin 500mg) 500 mg in 100 mls @ 100 mls/hr IVPB DAILY [facility] Ibuprofen (Motrin Tab) 600 mg PO Q6H PRN PRN Reason: Pain, moderate (4-7) Insulin Human Lispro (Humalog) 0 units SC ACHS [facility] PRN Reason: Protocol Last Admin: 03/08/17 06:41 Dose: Not Given Isosorbide Mononitrate (Imdur) 60 mg PO DAILY [facility] Last Admin: 03/08/17 09:05 Dose: 60 mg Lactobacillus Acidophilus (Bacid Acidophilus) 1 cap PO BID [facility] Last Admin: 03/08/17 09:07 Dose: 1 cap Lisinopril (Zestril) 10 mg PO DAILY [facility] Last Admin: 03/08/17 09:05 Dose: 10 mg Metformin HCl (Glucophage) 500 mg PO BID [facility] Last Admin: 03/08/17 09:10 Dose: 500 mg Mupirocin (Bactroban Ointment) 1 applic TOP DAILY [facility] Last Admin: 03/08/17 09:08 Dose: 1 applic - Labs Labs: 03/08/17 05:50 03/08/17 05:50 - Constitutional Appears: Non-toxic, No Acute Distress - Head Exam Left frontal, temporal hematoma, abrasion periorbital hematoma , left - Eye Exam Eye Exam: EOMI, Periorbital tenderness Pupil Exam: NORMAL ACCOMMODATION - ENT Exam ENT Exam: Mucous Membranes Moist, Normal External Ear Exam - Neck Exam Neck exam: Positive for: Full Rom. Negative for: Meningismus - Respiratory Exam Respiratory Exam: NORMAL BREATHING PATTERN. absent: Rales, Wheezes, Respiratory Distress - Cardiovascular Exam Cardiovascular Exam: REGULAR RHYTHM, +S1, +S2 - GI/Abdominal Exam GI & Abdominal Exam: Hernia (umbilical), Normal Bowel Sounds, Soft. absent: Tenderness - Extremities Exam Extremities exam: Positive for: calf tenderness, normal capillary refill, pedal edema, pedal pulses present Additional comments: left Leg ulcer with dressing - Back Exam Back exam: FULL ROM. absent: CVA tenderness (L), CVA tenderness (R), paraspinal tenderness, vertebral tenderness - Neurological Exam Neurological exam: Alert, CN II-XII Intact, Oriented x3, Reflexes Normal - Psychiatric Exam Psychiatric exam: Normal Affect, Normal Mood - Skin Skin Exam: Abrasion, Dry, Normal Color, Warm Assessment and Plan (1) Head injury Status: Acute (2) Scalp hematoma Status: Acute (3) Fall Status: Acute (4) CAD (coronary artery disease) Status: Chronic (5) HTN (hypertension) Status: Chronic (6) DM type 2 (diabetes mellitus, type 2) Status: Chronic (7) Asthma, mild intermittent Status: Chronic (8) Chronic venous insufficiency Status: Chronic (9) Chronic ulcer of left leg Status: Chronic (10) DVT prophylaxis Status: Acute - Assessment and Plan (Free Text) Assessment: 62 y/o Homeless lady, hx of CAD s/p CABG, HTN, DM, Asthma , Chronic LLE Ulcer ( MRSA , E Coli) was brought in after a fall. Pt was brought in yesterday bec of the same problem - she fell off a bench while napping , sustained head trauma and scalp contusion. She had a CT scan w/c was negative for bleed nor fracture and was discharged home. On the day of admission, she bent down to pick something on the floor when she felt slight dizzy and fell on her left and sustained trauma on the same side of her head where she had the trauma, the day before. She denies LOC, headache, no N/V, no CP, no SOB. She states she did not eat her breakfast before the event. (1) Head injury Status: Acute sec to [facility] fall, denies LOC, [place] CT of head and Maxillofacial : No intracranial bleed nor fracture, No acute intracranial hemorrhage. Large left frontal temporal and posterior parietal scalp contusion. . Swelling extends over the left periorbital and left premaxillary soft tissues as well as over the left zygomatic arch. PT consulted No focal neuro deficit (2) Scalp hematoma Status: Acute as above (3) Fall Status: Acute as above no signs and sxs to indicate this was a syncopal episode no focal neuro deficit on exam PT consult (4) CAD (coronary artery disease) Status: Chronic Hx of CABG denies CP Trop x 3 negative no EKG change cont Imdur, ASA (5) HTN (hypertension) Status: Chronic (6) DM type 2 (diabetes mellitus, type 2) Status: Chronic accucheck achs cont Metformin (7) Asthma, mild intermittent Status: Chronic Albuterol inhaler prn (8) Chronic venous insufficiency Status: Chronic stasis skin changes (9) Chronic ulcer of left leg Status: Chronic recent d/c from [place] for Cellulitis- on PO Clinda Wound c/s; MRSA and E coli started IV vanco and Levaquin while in the hospital Podiatry consulted Pt is afebrile, no Leukocytosis, some tenderness and erythema around the area of the wound Wound RN Doppler US of LLE: negative for DVT 10. CXR : Atelectasis vs Infiltrate - no fever, no leukocytosis, pt has no dyspnea, occ cough, lung exam: no rales - Favor Atelectasis (11) DVT prophylaxis Status: Acute Lovenox
--- NOTE | 2017-03-08 11:11 | US ---
HISTORY: r/o DVT . PRIORS: None. FINDINGS: 2-D, color and duplex Doppler analysis of the lower extremity venous circulation using routine protocol from the femoral veins through the popliteal veins. Venous compressibility: Normal. Flow and augmentation patterns: Normal. Visualized veins upper third of calf: Normal. Martinez cyst: None. IMPRESSION: No sonographic or Doppler evidence for DVT in left lower extremity.
[2017-03-08] MEDS: levoFLOXacin 500 mg in D5W 500 MG/100 ML BAG IVPB SCH (11:51)
[2017-03-09] MEDS: Insulin Lispro (humaLOG) 100 Units/ml Inj SC SCH (06:34)
[2017-03-09 08:11] VITALS: BP 117/54; PULSE 68; RESP 20; TEMP 97.8; O2SAT 97
--- NOTE | 2017-03-09 08:39 | CP.PCM.DIS ---
Provider - Provider Date of Admission: 03/08/17 11:07 Attending physician: Symone Jorgensen MD Primary care physician: Dr Camargo Consults: Podiatry : Dr Spangler Time Spent in preparation of Discharge (in minutes): 35 Diagnosis - Discharge Diagnosis (1) Head injury Status: Acute (2) Scalp hematoma Status: Acute (3) Fall Status: Acute (4) CAD (coronary artery disease) Status: Chronic (5) HTN (hypertension) Status: Chronic (6) DM type 2 (diabetes mellitus, type 2) Status: Chronic (7) Asthma, mild intermittent Status: Chronic (8) Chronic venous insufficiency Status: Chronic (9) Chronic ulcer of left leg Status: Chronic (10) DVT prophylaxis Status: Acute Hospital Course - Lab Results Lab Results: Micro Results 03/07/17 16:20 Blood Blood Culture - Preliminary NO GROWTH AFTER 24 HOURS 03/07/17 16:00 Blood Blood Culture - Preliminary NO GROWTH AFTER 24 HOURS Most Recent Lab Values WBC 5.4 K/uL (4.8-10.8) 03/08/17 05:50 RBC 3.64 Mil/uL (3.80-5.20) L 03/08/17 05:50 Hgb 9.7 g/dL (12.0-16.0) L 03/08/17 05:50 Hct 31.3 % (34.0-47.0) L 03/08/17 05:50 MCV 85.9 fl (81.0-99.0) 03/08/17 05:50 MCH 26.7 pg (27.0-31.0) L 03/08/17 05:50 MCHC 31.1 g/dL (33.0-37.0) L 03/08/17 05:50 RDW 15.6 % (11.5-14.5) H 03/08/17 05:50 Plt Count 199 K/uL (130-400) 03/08/17 05:50 MPV 8.0 fl (7.2-11.7) 03/07/17 12:20 Neut % (Auto) 73.1 % (50.0-75.0) 03/07/17 12:20 Lymph % (Auto) 18.7 % (20.0-40.0) L 03/07/17 12:20 [place] % (Auto) 5.3 % (0.0-10.0) 03/07/17 12:20 Eos % (Auto) 2.1 % (0.0-4.0) 03/07/17 12:20 Baso % (Auto) 0.8 % (0.0-2.0) 03/07/17 12:20 Neut # 4.1 K/uL (1.8-7.0) 03/07/17 12:20 Lymph # 1.0 K/uL (1.0-4.3) 03/07/17 12:20 [place] # 0.3 K/uL (0.0-0.8) 03/07/17 12:20 Eos # 0.1 K/uL (0.0-0.7) 03/07/17 12:20 Baso # 0.0 K/uL (0.0-0.2) 03/07/17 12:20 Sodium 141 mmol/l (132-148) 03/08/17 05:50 Potassium 4.7 MMOL/L (3.6-5.0) 03/08/17 05:50 Chloride 110 mmol/L (98-107) H 03/08/17 05:50 Carbon Dioxide 23 mmol/L (22-30) 03/08/17 05:50 Anion Gap 13 (10-20) 03/08/17 05:50 BUN 24 mg/dl (7-17) H 03/08/17 05:50 Creatinine 1.0 mg/dL (0.7-1.2) 03/08/17 05:50 Est GFR ( Amer) > 60 03/08/17 05:50 Est GFR (Non-Af Amer) 57 03/08/17 05:50 POC Glucose (mg/dL) 121 mg/dL (65-110) H 03/09/17 05:22 Random Glucose 94 mg/dL (65-105) 03/08/17 05:50 Calcium 9.3 mg/dL (8.4-10.2) 03/08/17 05:50 Total Bilirubin 0.4 mg/dl (0.2-1.3) 03/07/17 12:20 AST 21 U/L (14-36) 03/07/17 12:20 ALT 41 U/L (9-52) 09/20/17 12:20 Alkaline Phosphatase 104 U/L (38-126) 03/07/17 12:20 Troponin I < 0.0120 ng/mL (0.00-0.120) 03/08/17 01:00 Total Protein 6.6 G/DL (6.3-8.2) 03/07/17 12:20 Albumin 3.9 g/dL (3.5-5.0) 03/07/17 12:20 Globulin 2.7 gm/dL (2.2-3.9) 03/07/17 12:20 Albumin/Globulin Ratio 1.4 (1.0-2.1) 03/07/17 12:20 - Hospital Course Hospital Course: 62 y/o Homeless lady, hx of CAD s/p CABG, HTN, DM, Asthma , Chronic LLE Ulcer ( MRSA , E Coli) was brought in after a fall. Pt was previously seen in the ED the day before this admission bec of the same problem - she fell off a bench while napping , sustained head trauma and scalp contusion. She had a CT scan of the head w/c was negative for bleed nor fracture and was discharged home. On the day of admission, she bent down to pick something on the floor when she felt slight dizzy and fell on her left and sustained trauma on the same side of her head where she had the trauma, the day before. She denies LOC , headache, no N/V, no CP, no SOB. She states she did not eat her breakfast before the event and had taken her Metformin (1) Head injury Status: Acute sec to [facility] fall, denies LOC, [place] CT of head and Maxillofacial : No intracranial bleed nor fracture, No acute intracranial hemorrhage. Large left frontal temporal and posterior parietal scalp contusion. . Swelling extends over the left periorbital and left premaxillary soft tissues as well as over the left zygomatic arch. PT consulted- Pt stable on her feet and did not have any gait instability No focal neuro deficit (2) Scalp hematoma Status: Acute as above (3) Fall Status: Acute as above no signs and sxs to indicate this was a syncopal episode no focal neuro deficit on exam PT consulted Gait stable (4) CAD (coronary artery disease) Status: Chronic Hx of CABG denies CP Trop x 3 negative no EKG change cont Imdur, ASA (5) HTN (hypertension) Status: Chronic cont Lasix and IMdur (6) DM type 2 (diabetes mellitus, type 2) Status: Chronic accucheck achs cont Metformin d/c Levemir (7) Asthma, mild intermittent Status: Chronic Albuterol inhaler prn (8) Chronic venous insufficiency Status: Chronic stasis skin changes (9) Chronic ulcer of left leg Status: Chronic recent d/c from [place] for Cellulitis- on PO antibiotics Wound c/s; MRSA and E coli started IV vanco and Levaquin while in the hospital Podiatry consulted Pt is afebrile, no Leukocytosis, some tenderness and erythema around the area of the wound Wound RN Doppler US of LLE: negative for DVT will d/c pt home on PO Zyvox and Levaquin ff up [facility] Foot x ray : no Osteo 10. Atelectasis CXR : Atelectasis vs Infiltrate - no fever, no leukocytosis, pt has no dyspnea, occ cough, lung exam: no rales - Favor Atelectasis (11) DVT prophylaxis Status: Acute Lovenox Discharge Exam - Head Exam Additional comments: Left sided hematoma, ecchymoses improved - Eye Exam Eye Exam: EOMI, PERRL Pupil Exam: NORMAL ACCOMODATION Additional comments: periorbital hematoma very much improved no visual loss EOM intact - ENT Exam ENT Exam: Mucous Membranes Moist, Normal External Ear Exam - Neck Exam Neck exam: Full Rom - Respiratory Exam Respiratory Exam: NORMAL BREATHING PATTERN. absent: Respiratory Distress, Stridor - Cardiovascular Exam Cardiovascular Exam: REGULAR RHYTHM, +S1 - GI/Abdominal Exam GI & Abdominal Exam: Normal Bowel Sounds, Soft. absent: Tenderness - Extremities Exam Extremities exam: normal capillary refill, pedal pulses present Additional comments: no calf tenderness LLE ulcer with dressing - Back Exam Back exam: FULL ROM. absent: CVA tenderness (L), CVA tenderness (R), paraspinal tenderness, vertebral tenderness - Neurological Exam Neurological exam: Alert, CN II-XII Intact, Normal Gait, Oriented x3, Reflexes Normal - Psychiatric Exam Psychiatric exam: Normal Affect, Normal Mood - Skin Skin Exam: Dry, Normal Color, Warm Discharge Plan - Discharge Medications Prescriptions: Aspirin [Aspirin Chewable] 81 mg PO DAILY #30 chew Ferrous Sulfate [Feosol] 325 mg PO BID #60 tab Lactobacillus Acidophilus [Bacid Acidophilus] 1 cap PO BID #60 cap Levofloxacin [Levaquin] 500 mg PO DAILY #7 tablet Linezolid [Zyvox] 600 mg PO Q12 #20 tab - Follow Up Plan Condition: GOOD Disposition: HOME/ ROUTINE Instructions: Head Injury (DC), Head Injury (GEN), Dizziness (GEN) Additional Instructions: ff up with Dr Mary Jo scanlon appt [facility] ghislaine Referrals: Danuta Camargo MD [Medical Doctor] -
[2017-03-09] MEDS: levoFLOXacin 500 mg in D5W 500 MG/100 ML BAG IVPB SCH (09:00)
[2017-03-09] MEDS: Lactobacillus Acidophilus 500 MU Cap PO SCH (09:32)
[2017-03-09] MEDS: Santyl Collagenase OINTMENT TOP SCH (09:33)
[2017-03-09] MEDS: Enoxaparin 40 mg Syringe SC SCH (09:33)
== END 2017-03-09 13:00 | disposition home or self-care (01) | DRG 280 ==
LOC: H.ER 11:24 → H.ERHOLD 15:07 → H.TEL 17:18 → OBSVTOIN 03-08 11:07
PROVIDERS: ADMIT Internal Medicine; ATTEND Internal Medicine
DX: S00.03XA Contusion of scalp, initial encounter (principal); J98.11 Atelectasis; L03.116 Cellulitis of left lower limb; I10 Essential (primary) hypertension; L97.929 Non-pressure chronic ulcer of unspecified part of left lower leg with unspecified severity; E11.9 Type 2 diabetes mellitus without complications; B95.62 Methicillin resistant Staphylococcus aureus infection as the cause of diseases classified elsewhere; J44.9 Chronic obstructive pulmonary disease, unspecified; W08.XXXA Fall from other furniture, initial encounter; I87.2 Venous insufficiency (chronic) (peripheral); J45.20 Mild intermittent asthma, uncomplicated; Z59.0 Homelessness; I25.10 Atherosclerotic heart disease of native coronary artery without angina pectoris; Z95.1 Presence of aortocoronary bypass graft; I25.2 Old myocardial infarction; E78.00 Pure hypercholesterolemia, unspecified; B96.20 Unspecified Escherichia coli [E. coli] as the cause of diseases classified elsewhere; E78.5 Hyperlipidemia, unspecified; S05.12XA Contusion of eyeball and orbital tissues, left eye, initial encounter

== ENCOUNTER 2017-03-16 04:15 | Emergency (ER) | payer OTHER ==
[2017-03-16 04:29] VITALS: BMI 36.3
[2017-03-16 04:33] VITALS: PULSE 68; TEMP 98
--- NOTE | 2017-03-16 04:40 | ED PDOC ---
HPI: Chest Pain Time Seen by Provider: 03/16/17 04:16 Chief Complaint (Nursing): Palpitations Chief Complaint (Provider): Palpitations History Per: Patient History/Exam Limitations: no limitations Current Symptoms Are (Timing): Gone Now Associated Symptoms: denies: Nausea, Diaphoresis Additional Complaint(s): 62 year old female well known to provider and ED, past medical history including CAD, Hypertension, COPD, CHF, chronic lower extremity edema and cellulitis, and diabetes, presents to the ED for evaluation of palpitations. She reports developing sense of palpitations after using her albuterol inhaler. Symptoms resolved on arrival. She denies any chest pain, nausea, vomiting, or diaphoresis. Of note, patient fell 2 weeks ago striking her face. She was seen in the ED at that time, worked up, and sent home. She reports improvement since that time. Past Medical History Reviewed: Historical Data, Nursing Documentation, Vital Signs Vital Signs: Last Vital Signs Temp 98.0 F 03/16/17 04:29 Pulse 68 03/16/17 04:29 Resp 18 03/16/17 04:29 BP 133/65 03/16/17 04:29 Pulse Ox 100 03/16/17 06:02 - Medical History PMH: Asthma, COPD, Diabetes, HTN, Hypercholesterolemia, Peripheral Edema Denies: Chronic Kidney Disease - Surgical History Surgical History: CABG, Tonsillectomy - Family History Family History: States: Unknown Family Hx - Social History Current smoker - smoking cessation education provided: No Ex-Smoker (has not smoked in the last 12 months): No Alcohol: None Drugs: Denies - Home Medications Home Medications: Ambulatory Orders Medication Instructions Recorded Albuterol HFA [Ventolin HFA 90 2 puff IH Q4H PRN 03/07/17 mcg/actuation (8 g)] Collagenase [Santyl] 1 appl TOP DAILY 03/07/17 Furosemide [Lasix] 40 mg PO DAILY 03/07/17 Ibuprofen [Motrin Tab] 600 mg PO Q6H PRN 03/07/17 Isosorbide Mononitrate [Imdur] 60 mg PO DAILY 03/07/17 Lisinopril [Zestril] 10 mg PO DAILY 03/07/17 Mupirocin 2% Ointment [Bactroban 1 appl TP DAILY 03/07/17 Ointment] metFORMIN [glucOPHAGE] 500 mg PO BID 03/07/17 Aspirin [Aspirin Chewable] 81 mg PO DAILY #30 chew 03/09/17 Ferrous Sulfate [Feosol] 325 mg PO BID #60 tab 03/09/17 Lactobacillus Acidophilus [Bacid 1 cap PO BID #60 cap 03/09/17 Acidophilus] Levofloxacin [Levaquin] 500 mg PO DAILY #7 tablet 03/09/17 Linezolid [Zyvox] 600 mg PO Q12 #20 tab 03/09/17 - Allergies Allergies/Adverse Reactions: Allergies Allergy/AdvReac Type Severity Reaction Status Date / Time No Known Allergies Allergy Verified 03/16/17 04:29 Review of Systems Cardiovascular: Positive for: Palpitations. Negative for: Chest Pain Gastrointestinal: Negative for: Nausea, Vomiting Physical Exam - Reviewed Nursing Documentation Reviewed: Yes Vital Signs Reviewed: Yes - Physical Exam Appears: Positive for: Non-toxic, No Acute Distress Head Exam: Positive for: NORMOCEPHALIC. Negative for: ATRAUMATIC (Left superorbital and periorbital hematoma approximately 2 weeks old in appearance) Skin: Positive for: Normal Color, Warm, Dry Eye Exam: Positive for: EOMI, Normal appearance, PERRL Neck: Positive for: Normal, Painless ROM, Supple Cardiovascular/Chest: Positive for: Regular Rate, Rhythm. Negative for: Murmur Respiratory: Positive for: Normal Breath Sounds. Negative for: Respiratory Distress Gastrointestinal/Abdominal: Positive for: Normal Exam, Soft. Negative for: Tenderness Back: Positive for: Normal Inspection. Negative for: L CVA Tenderness, R CVA Tenderness, Other (midline tenderness) Extremity: Positive for: Pedal Edema (3+ bilaterally), Other (Left tibial surface with ulceration that is unchanged from previous, no active drainage, no focal erythema or warmth) Neurologic/Psych: Positive for: Alert, Oriented. Negative for: Motor/Sensory Deficits - ECG O2 Sat by Pulse Oximetry: 100 Medical Decision Making Medical Decision Making: Impression: 62 year old female with palpitations after using beta agonist inhaler Plan: -EKG -Heart monitor 03/16/17 06:00 Patient resting comfortably for duration of stay. No abnormal rhythmic activity noticed during her stay. Patient stable for discharge. Diagnosis: Palpitations secondary to beta agonist use Scribe Attestation: Documented by Jonathan Bacon acting as a scribe for Estevan Barger MD. Scribe Attestation: All medical record entries made by the Scribe were at my direction and personally dictated by me. I have reviewed the chart and agree that the record accurately reflects my personal performance of the history, physical exam, medical decision making, and the department course for this patient. I have also personally directed, reviewed, and agree with the discharge instructions and disposition. Disposition - Clinical Impression Clinical Impression: Palpitations - Disposition Referrals: Ana Sandy MD [Primary Care Provider] - Disposition: Routine/Home Disposition Time: 06:00 Condition: STABLE Instructions: Palpitations (ED) Forms: [facility] ([place])
[2017-03-16 06:29] VITALS: BP 126/68; RESP 16; O2SAT 98
--- NOTE | 2017-03-17 12:16 | CARD ---
APPROVED REPORT EKG Measurement Heart [id number] <Conclusion> Normal sinus rhythm Minimal voltage criteria for LVH, may be normal variant Inferior infarct, age undetermined Abnormal ECG
== END 2017-03-16 06:44 | disposition home or self-care (01) ==
LOC: H.ER 04:15
DX: R00.2 Palpitations (principal)